=== PATIENT | female | born 1965 | race Caucasian/White ===

== ENCOUNTER 2016-08-20 09:51 | Emergency (ER) | payer OTHER ==
[~2016-08-20] VITALS: Ht 165.1 cm; Wt 105.7 kg
[~2016-08-20 09:51] MED LIST: BUSPAR15 MG PO; COUMADIN,JANTOVE5 MG PO; CYMBALTA60 MG PO; EFFEXOR XR150 MG PO; FLOVENT 11120 INHALA IH; LISINOPRIL40 MG PO; LOTREL 5-40 MG1 EACH PO; LOVENOX100 MG/1 M SC; MOTRIN600 MG PO; PRINIVIL10 MG PO; TOPAMAX200 MG PO; TRAMADOL HCL50 MG PO; ULTRAM50 MG PO; VENTOLIN HFA18 GM IH
[2016-08-20 10:55] LABS: HEMATOCRIT 39.5 % (36.0-46.0); MCHC 32.2 G/DL (30.0-36.0); MEAN PLAT.VOLUME 10.5 uM^3 (9.5-12.4); PLATELET COUNT 335 K/uL (156-360); RBC DIS.WIDTH-CV 12.5 % (11.8-14.6); RBC DIS.WIDTH-SD 39.8 % (39-53); RED BLOOD COUNT 4.54 M/uL (3.80-5.20)
[2016-08-20 11:12] LABS: CHLORIDE 104 mEq/L (99-109); SODIUM 138 mEq/L (136-147)
[2016-08-20 11:13] LABS: GLUCOSE 96 mg/dL (70-99)
[2016-08-20 11:15] LABS: ANION GAP 9 MEQ/L (2-14)
[2016-08-20 11:17] LABS: GFR ESTIMATE (CALCULATED) > 59 mL/min/
[2016-08-20 11:18] LABS: UREA NITROGEN (BUN) 10 mg/dL (9-23)
[2016-08-20] MEDS ORDERED: PREDNISONE20 MG PO (13:36)
[2016-08-20] MEDS ORDERED: PROVENTIL,2.5 MG/3 M IH (13:36)
[2016-08-20 14:07] VITALS: BP 128/74
== END 2016-08-20 14:08 | disposition home or self-care (01) ==
LOC: EME 09:51
DX: B34.9 Viral infection, unspecified (principal); J98.01 Acute bronchospasm; J45.909 Unspecified asthma, uncomplicated; J44.9 Chronic obstructive pulmonary disease, unspecified; I10 Essential (primary) hypertension; F32.9 Major depressive disorder, single episode, unspecified; G43.909 Migraine, unspecified, not intractable, without status migrainosus
CPT/HCPCS: 71020; 80048; 85027; 99281; 99284; J7512